=== PATIENT | male | born 1965 | race Caucasian/White ===

== ENCOUNTER 2023-04-01 12:37 | Day surgery (SDC) | payer OTHER, SELFPAY ==
--- NOTE | 2023-04-01 | PATH_ITS ---
[facility] Accession Number: [id number] No. of containers..01 Tissue . 01 Material submitted: . colon - ASCENDING COLON POLYP . 01 Diagnosis: Ascending Colon, Polyp: Tubular adenoma. MRV 04/13/2023 1725 Local . 01 Electronically signed: . Leeann Goerge MD, Pathologist NPI- [id number] . 01 Gross description: . ASCENDING COLON POLYP: Received in formalin is 1 fragment(s) of croft, soft tissue measuring 0.6 x 0.3 x 0.3 cm submitted entirely in 1 cassette(s) /JYOTSNA 04/07/2023 1707 Local . 01 Pathologist provided ICD-10: D12.2 . 01 CPT . 815147 Specimen Comment: A courtesy copy of this report has been sent to [facility] Pathology Performed at: 01 [facility] [address] [place] [address], [place], [place] [id number] MD Candido Man MD Phone: [phone]
[2023-04-01 12:59] VITALS: BMI 36.0
[2023-04-01 13:08] VITALS: BP 154/92; PULSE 79; RESP 17; TEMP 36.3; O2SAT 99
--- NOTE | 2023-04-01 15:10 | PM.HP.1 ---
History of Present Illness History of Present Illness Date Patient Seen: 04/01/23 Time Patient Seen: 15:10 Chief complaint: SDC Narrative: 57-year-old male presents today for a screening colonoscopy. His last screening was about 9 years ago. He might have had polyps he believes it was done here at [facility]. Has no family history of colon cancer in no concerning symptoms. He does take a psyllium fiber supplement tbsp and a half in the morning with a large glass of water daily. He sees Dr. Michelle who informed him he may even be overdue for a colonoscopy because of the polyps. [facility] Medical History (Updated 04/01/23 @ 15:12 by Vita Hernandez MD) Allergies (~2011) Colon polyps (~2013) COVID-19 Fractures (~1975) GERD (gastroesophageal reflux disease) (~2009) H/O adenomatous polyp of colon Herpes (~1974) Herpes labialis Hypertension Irritable bowel syndrome (~2017) Mixed hyperlipidemia Obesity (BMI 30-39.9) Obstructive sleep apnea (~2013) Seizure (~1971) Shoulder pain (~1996) Surgical History (Updated 03/11/22 @ 22:36 by Ofelia Weaver) Anesthesia History of hip surgery (~1979) Mucoid cyst, joint (~2016) S/P ACL repair (~1980) Family History (Updated 03/11/22 @ 22:39 by Ofelia Weaver) Father History of heart disease Hypertension Bladder cancer Leg ulcer Mother Cancer Brother High platelet count Sister Kidney disease Grandmother Diabetes mellitus Social History household members: spouse Smoking Status: Former smoker Meds Home Medications and Allergies Home Medications Medication Instructions Recorded Confirmed Type losartan 100 0.5 tab PO DAILY 04/09/22 04/01/23 History mg-hydrochlorothiazide 25 mg tablet naproxen 500 mg tablet 500 mg PO DAILY PRN pain 04/09/22 04/01/23 History omeprazole 40 mg capsule,delayed 40 mg PO DAILY 04/09/22 04/01/23 History release valacyclovir 1 gram tablet 2,000 mg PO DAILY 04/09/22 04/01/23 History peg 3350-electrolytes 236 240 ml PO Q10M #4,000 mL 03/04/23 04/01/23 Rx gram-22.74 gram-6.74 gram-5.86 gram solution (Golytely) Allergies Allergy/AdvReac Type Severity Reaction Status Date / Time lisinopril AdvReac Severe Cough/Itchy Verified 04/01/23 12:56 Throat simvastatin AdvReac Intermediate Muscle Pain Verified 04/01/23 12:56 Statins Allergy Tendon Uncoded 04/01/23 12:56 Stiffness Exam Vital Signs (past 8 hours): - 04/01/23 13:08 Temperature 97.4 F L Pulse Rate 79 Respiratory Rate 17 Blood Pressure 154/92 H Pulse Oximetry 99 Oxygen Delivery Method Room Air Oxygen Delivery Method Room Air Const General: cooperative, healthy appearing and comfortable Nutritional Appearance: obese (BMI 36) HENTX Head: normal to inspection Eyes General: appearance normal, both eyes and all related structures Resp Effort & Inspection: normal respiratory effort and able to speak in complete sentences GI Palpation: soft and No tender Assessment & Plan Assessment and plan (1) Colon cancer screening: Status: Acute Assessment & Plan narrative: Presents today for screening colonoscopy I discussed the risks benefits and alternatives including but not limited to perforation of the colon and an incomplete exam he fully understands these risks and would like to proceed.
[2023-04-01 15:52] VITALS: BP 130/95; PULSE 84; RESP 20; TEMP 37.2; O2SAT 97
[2023-04-01 15:56] VITALS: BP 136/98; PULSE 76; RESP 16; O2SAT 99
[2023-04-01 16:00] VITALS: BP 139/96; PULSE 73; RESP 12; TEMP 36.7; O2SAT 99
[2023-04-01] MEDS: LACTATED RINGERS 1,000 ML 42 ML IV (16:07)
[2023-04-01 16:08] VITALS: BP 148/100; PULSE 66; RESP 14; O2SAT 100
--- NOTE | 2023-04-01 16:12 | PM.OP.COLON ---
Operative Date/Time/Diagnoses Date of procedure: 04/01/23 Time of procedure: 16:12 Pre-op diagnosis: Colon cancer screening, history of polyps Post-op diagnosis: same Procedure & Clinicians Study performed: Colonoscopy and biopsy Same procedure as scheduled: Yes Indications: Colon cancer screening history of polyps Surgeon: Vita Hernandez Procedure Notes Procedure in detail: Patient was taken to the endoscopy suite and placed in a left lateral decubitus position. A time-out was performed. With the help of anesthesiologist conscious sedation was induced and monitored throughout the case. A digital rectal exam was performed and there were no masses or strictures. The colonoscope was introduced into the anal canal and advanced through to the cecum. A photograph of the appendiceal orifice was obtained. There were multiple sigmoid diverticula that were photographed. The bowel prep was good [facility] bowel prep score of 2. The scope was then withdrawn for a total of 15 minutes including biopsy time and 1 small cecal polyp was seen and removed with biopsy snare. The scope was then retroflexed and a photograph of the internal hemorrhoidal piles was obtained. Findings: divertiulosis and polyp(s) Specimen(s): other (Ascending colon polyp) Complications: none Post-procedure Plan for aftercare: 7-10 year follow-up depending on pathology of small polyp.
== END 2023-04-01 16:24 | disposition home or self-care (01) ==
PROVIDERS: PCP Internal Medicine; Referring Provider Surgery; Visit Provider Surgery
PROC: 0DJD8ZZ Inspection of Lower Intestinal Tract, Via Natural or Artificial Opening Endoscopic (ICD-10-PCS; CPT 45378; principal; 2023-04-01 13:30)
DX: Z12.11 Encounter for screening for malignant neoplasm of colon (principal); Z86.010 Personal history of colon polyps; K57.30 Diverticulosis of large intestine without perforation or abscess without bleeding; D12.2 Benign neoplasm of ascending colon
CPT/HCPCS: 45385; J2250; J2704; J3010

== ENCOUNTER → 2024-08-03 10:04 | Outpatient (CLI) | payer OTHER, SELFPAY ==
[2024-08-03 11:22] LABS: BUN Creatinine Ratio 15.7 (6-22); Blood Urea Nitrogen 16 mg/dL (9-20); Calcium 9.6 mg/dL (8.4-10.2); Carbon Dioxide 27 mmol/L (22-32); Chloride 102 mmol/L (98-107); Estimated Glomerular Filt Rate > 60 mL/min (>60); Glucose 95 mg/dL (80-110); HEMOLYSIS < 15 (0-50); Magnesium 1.9 mg/dL (1.6-2.3); Potassium 4.4 mmol/L (3.4-5.1); Sodium 137 mmol/L (137-145)
== END ==
PROVIDERS: PCP Internal Medicine; Referring Provider Internal Medicine; Visit Provider Internal Medicine
DX: I10 Essential (primary) hypertension (principal)
CPT/HCPCS: 36415; 80048; 83735

== ENCOUNTER → 2025-02-01 09:11 | Outpatient (CLI) | payer OTHER, SELFPAY ==
[2025-02-01 10:31] LABS: BUN Creatinine Ratio 9.7 (6-22); Blood Urea Nitrogen 9 mg/dL (9-20); Calcium 9.4 mg/dL (8.4-10.2); Carbon Dioxide 25 mmol/L (22-32); Chloride 100 mmol/L (98-107); Estimated Glomerular Filt Rate > 60 mL/min (>60); Glucose 95 mg/dL (70-99); HEMOLYSIS < 15 (0-50); Potassium 4.5 mmol/L (3.4-5.1); Sodium 137 mmol/L (137-145)
[2025-02-01 11:03] LABS: Prostate Specific Antigen Scrn 0.258 ng/mL (0.1-4.0)
== END ==
PROVIDERS: PCP Internal Medicine; Referring Provider Internal Medicine; Visit Provider Internal Medicine
DX: Z12.5 Encounter for screening for malignant neoplasm of prostate (principal); I10 Essential (primary) hypertension
CPT/HCPCS: 36415; 80048; G0103